=== PATIENT | male | born 1940 | race Asian ===

== ENCOUNTER 2025-02-17 07:32 | Inpatient (IN) | payer BC, MEDICARE ==
[~2025-02-17] VITALS: Ht 167.6 cm; Wt 68.0 kg
[2025-02-17 08:09] LABS: BASOPHILS % 0.6 % (0.0-2.0); EOSINOPHILS % 0.8 % (0.0-5.0); HEMATOCRIT. 41.8 % (42.0-52.0); HEMOGLOBIN. 13.4 g/dL (14.0-18.0); LYMPHOCYTES % 14.7 % (20.0-50.0); MEAN PLATELET VOLUME 9.2 fl (7.4-10.4); MONOCYTES % 3.4 % (2.0-8.0); NEUTROPHILS % 80.5 % (40.0-76.0); PLATELET 202 x1000/uL (130-400); RED BLOOD CELL COUNT 4.42 mill/uL (4.7-6.1); RED CELL DISTRIBUTION WIDTH 14.7 % (11.6-14.6)
[2025-02-17 08:28] LABS: CREATININE 1.8 mg/dL (0.6-1.3); UREA NITROGEN BLOOD 37.0 mg/dL (9-23)
[2025-02-17 08:30] LABS: TROPONIN I HIGH SENSITIVITY 44 ng/L (3.0-53)
[2025-02-17] MEDS ORDERED: SODIUM BICARBONATE 8.4% 50MEQ/50ML VIAL IV ONE (09:15)
[2025-02-17] MEDS: CALCIUM GLUCONATE 100MG/ML 10ML VIAL IV ONE (09:18)
[2025-02-17] MEDS: DEXTROSE 50% WATER 50ML SYRINGE IV ONE (09:18)
[2025-02-17] MEDS: INSULIN REGULAR (HUMULIN R) 1000UNITS/10ML VIAL IV ONE (09:19)
[2025-02-17] MEDS: SODIUM BICARBONATE 8.4% 50MEQ/50ML SYR IV NR (09:19)
[2025-02-17 10:24] VITALS: PULSE 102; RESP 16; O2SAT 100
[2025-02-17] MEDS: ALBUTEROL (0.5%) 2.5MG/0.5ML NEB HHN ONE (10:24)
[2025-02-17] MEDS ORDERED: ONDANSETRON HCL 4MG/2ML INJ IV PRN (11:30)
[2025-02-17] MEDS ORDERED: ACETAMINOPHEN 325MG TABLET PO PRN ×2 (11:30)
[2025-02-17] MEDS ORDERED: ZOLPIDEM TARTRATE 5MG TABLET PO PRN (11:30)
[2025-02-17] MEDS ORDERED: DIPHENHYDRAMINE 50MG/ML VIAL IV PRN (11:30)
[2025-02-17] MEDS ORDERED: DEXTROSE 50% WATER 50ML SYRINGE IV PRN (11:30)
[2025-02-17] MEDS ORDERED: MAGNESIUM/ALUMINUM HYDROXIDE/SIMETHICONE 30ML UDC PO PRN (11:30)
[2025-02-17] MEDS: SODIUM CHLORIDE 0.9% 1,000 ML IV SCH (12:09)
[2025-02-17] MEDS: ENOXAPARIN 80MG/0.8ML SYR SUBCUT SCH (12:10)
[2025-02-17] MEDS: BLOOD SUGAR DIAGNOSTIC STRIP TEST SCH (15:00)
[2025-02-17] MEDS: INSULIN LISPRO 100 UNITS/ML SUBCUT SCH (15:20)
[2025-02-17 16:00] VITALS: BP 139/69; PULSE 72; RESP 14; TEMP 36.4; O2SAT 98
[2025-02-17 17:23] VITALS: BP 139/69; PULSE 72; RESP 14; TEMP 36.4736
[2025-02-17] MEDS: DILTIAZEM HCL 30MG TABLET PO SCH (18:11)
[2025-02-17] MEDS: SODIUM CHLORIDE 0.9% 3ML FLUSH IVF SCH (18:13)
[2025-02-17 19:04] LABS: INR 1.0
[2025-02-17 20:00] VITALS: BP 117/60; PULSE 60; RESP 18; TEMP 36.2; O2SAT 97
[2025-02-17] MEDS: APIXABAN 5 MG TABLET PO SCH (22:17)
[2025-02-18] VITALS: BP 133/57; PULSE 68; RESP 18; TEMP 36.1; O2SAT 97
[2025-02-18 04:00] VITALS: BP 144/75; PULSE 68; RESP 18; TEMP 36.1; O2SAT 98
[2025-02-18 07:53] LABS: BASOPHILS % 0.5 % (0.0-2.0); EOSINOPHILS % 0.6 % (0.0-5.0); HEMATOCRIT. 38.1 % (42.0-52.0); HEMOGLOBIN. 12.4 g/dL (14.0-18.0); LYMPHOCYTES % 19.3 % (20.0-50.0); MEAN PLATELET VOLUME 9.6 fl (7.4-10.4); MONOCYTES % 6.4 % (2.0-8.0); NEUTROPHILS % 73.2 % (40.0-76.0); PLATELET 185 x1000/uL (130-400); RED BLOOD CELL COUNT 4.09 mill/uL (4.7-6.1); RED CELL DISTRIBUTION WIDTH 14.5 % (11.6-14.6)
[2025-02-18 07:59] LABS: CREATININE 1.2 mg/dL (0.6-1.3); TRIGLYCERIDE 85 mg/dL (0-150); UREA NITROGEN BLOOD 26 mg/dL (9-23)
[2025-02-18 08:00] VITALS: BP 128/64; PULSE 70; RESP 20; TEMP 36.5; O2SAT 98
[2025-02-18 08:00] LABS: LDL CHOLESTEROL 67 mg/dL (5-100)
[2025-02-18 08:01] LABS: PHOSPHORUS 3.4 mg/dL (2.5-4.9)
[2025-02-18] MEDS ORDERED: ALBUTEROL (0.5%) 2.5MG/0.5ML NEB HHN NR (10:00)
[2025-02-18] MEDS: AMLODIPINE 2.5MG TABLET PO SCH (10:29)
[2025-02-18] MEDS: SODIUM ZIRCONIUM CYCLOSILICATE 10GM/PACKET PO NR (10:29)
[2025-02-18 12:00] VITALS: BP 154/75; PULSE 66; RESP 20; TEMP 36.5; O2SAT 99
[2025-02-18] MEDS: MAGNESIUM 2 G PREMIX 50 ML IV NR (12:08)
[2025-02-18 16:00] VITALS: BP 146/75; PULSE 85; RESP 20; TEMP 36.5; O2SAT 99
[2025-02-18 16:07] LABS: CLARITY URINE CLEAR (CLEAR); COLOR URINE YELLOW (YELLOW); GLUCOSE URINE NEGATIVE (NEGATIVE); KETONES URINE NEGATIVE (NEGATIVE); LEUKOCYTE ESTERASE URINE NEGATIVE (NEGATIVE); NITRITE URINE NEGATIVE (NEGATIVE); OCCULT BLOOD URINE NEGATIVE (NEGATIVE); PH URINE 6.0 (4.5-8.0); PROTEIN URINE NEGATIVE (NEGATIVE); SPECIFIC GRAVITY URINE 1.008 (1.005-1.030); UROBILINOGEN URINE 0.2 E.U./dL (0.2-1.0)
[2025-02-18] MEDS ORDERED: APIX5TAB MT (17:25)
[2025-02-18] MEDS ORDERED: LISI-650 MT (17:26)
[2025-02-18 20:00] VITALS: BP 172/90; PULSE 98; RESP 19; TEMP 36.2; O2SAT 98
[2025-02-19] VITALS: BP_SYST 86; PULSE 73; RESP 19; TEMP 36.3; O2SAT 94
[2025-02-19 06:33] LABS: BASOPHILS % 0.9 % (0.0-2.0); EOSINOPHILS % 2.0 % (0.0-5.0); HEMATOCRIT. 37.9 % (42.0-52.0); HEMOGLOBIN. 12.5 g/dL (14.0-18.0); LYMPHOCYTES % 25.0 % (20.0-50.0); MEAN PLATELET VOLUME 9.6 fl (7.4-10.4); MONOCYTES % 6.9 % (2.0-8.0); NEUTROPHILS % 65.2 % (40.0-76.0); PLATELET 185 x1000/uL (130-400); RED BLOOD CELL COUNT 4.11 mill/uL (4.7-6.1); RED CELL DISTRIBUTION WIDTH 14.6 % (11.6-14.6)
[2025-02-19 06:56] LABS: CREATININE 1.0 mg/dL (0.6-1.3); UREA NITROGEN BLOOD 19 mg/dL (9-23)
[2025-02-19 08:00] VITALS: BP 107/78; PULSE 70; RESP 18; TEMP 36.1; O2SAT 98
[2025-02-19] MEDS ORDERED: AMLO5TAB88 MT (10:18)
[2025-02-19] MEDS ORDERED: CARV3.1242 MT (11:23)
[2025-02-19] MEDS ORDERED: LOSA25TA26 MT (11:23)
[2025-02-19] MEDS ORDERED: FURO-152 MT (11:54)
[2025-02-19 12:00] VITALS: BP 158/73; PULSE 88; RESP 18; TEMP 36.7; O2SAT 98
[2025-02-19] MEDS: CLONIDINE 0.1MG TABLET PO PRN (13:43)
[2025-02-19 14:45] VITALS: BP 148/75
[2025-02-19 14:46] VITALS: BP 148/75; PULSE 88; RESP 16; TEMP 98
== END 2025-02-19 15:40 | disposition home or self-care (01) | DRG 73 ==
LOC: ER 07:32 → 8WST 11:05 → EDBEDREQ 11:07 → EDBEDREQTM 11:07
PROVIDERS: ADMIT Internal Medicine Pulmonary Disease; ATTEND Internal Medicine Pulmonary Disease
PROC: 4A00X4Z Measurement of Central Nervous Electrical Activity, External Approach (ICD-10-PCS; principal; 2025-02-18)
DX: G90.89 Other disorders of autonomic nervous system (principal); N17.0 Acute kidney failure with tubular necrosis; I50.22 Chronic systolic (congestive) heart failure; Z79.01 Long term (current) use of anticoagulants; I13.0 Hypertensive heart and chronic kidney disease with heart failure and stage 1 through stage 4 chronic kidney disease, or unspecified chronic kidney disease; E11.22 Type 2 diabetes mellitus with diabetic chronic kidney disease; N18.9 Chronic kidney disease, unspecified; I48.20 Chronic atrial fibrillation, unspecified; E78.5 Hyperlipidemia, unspecified; E87.5 Hyperkalemia; I48.91 Unspecified atrial fibrillation; I25.10 Atherosclerotic heart disease of native coronary artery without angina pectoris; Z79.84 Long term (current) use of oral hypoglycemic drugs; Z79.899 Other long term (current) drug therapy; Z86.73 Personal history of transient ischemic attack (TIA), and cerebral infarction without residual deficits; Z95.5 Presence of coronary angioplasty implant and graft
CPT/HCPCS: 36415; 71045; 76770; 80048; 80061; 81003; 82550; 82962; 83036; 83735; 84100; 84132; 84443; 84484; 85025; 85379; 93005; 93306; 93970; 94070; 94640; 95816; 96374; 96375; 99291; J0612; J1650; J1815; J3475; J3490